=== PATIENT | male | born 1975 | race Caucasian/White ===

== ENCOUNTER 2023-05-28 15:33 | Outpatient (REF) | payer OTHER, SELFPAY ==
--- NOTE | ~2023-05-28 | XR_ITS ---
EXAMINATION: XR KNEE, LEFT CLINICAL INFORMATION: Left knee pain COMPARISON: None available. TECHNIQUE: Four views of the left knee. FINDINGS: No fracture, dislocation or destructive lesion or effusion. XR/XR knee LT 3V IMPRESSION: Unremarkable study.
== END 2023-05-28 15:34 | disposition home or self-care (01) ==
LOC: HO.XRAY 15:33
PROVIDERS: Visit Provider Student in an Organized Health Care Education/Training Program
DX: S83.412A Sprain of medial collateral ligament of left knee, initial encounter (principal)
CPT/HCPCS: 73562

== ENCOUNTER 2025-06-23 15:12 | Outpatient (AMB) | payer OTHER, SELFPAY ==
--- NOTE | 2025-06-23 15:21 | MHC.PC.OV ---
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 Support Service Tech Required: No Accompanied by: Self / Same As Patient Allergies No Known Allergies Allergy (Verified 06/23/25 15:21) Medication List - Last Reconciled 06/23/25 by Porter Triana MD No Known Home Meds Tobacco use date assessed: 06/23/25 Dental Screening Dental Screen Date: 06/23/25 Did you have a dental visit in the last 12 months?: Yes Did you have a dental problem in the last 6 months where you did not have access to dental care?: No Was dental information given to patient?: Patient has dentist HPI HPI Comments History of Present Illness Details History of Present Illness The patient is a 49 year old male presenting with an annual physical examination and health screening, his first in six years. 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 The patient has a history of hypertension, which has resolved after losing 50 pounds. His blood pressure today was 120/76 mmHg. He has a family history of diabetes, with men in his family typically developing it around his current age of 49. He also has a family history of cancer, including uterine cancer in his mother and pituitary gland cancer in his grandfather. His mother had positive genetic testing for a predisposition to cancer, which may include pancreatic cancer. He developed body aches and chills last night and also reports some nausea associated with coughing. He has been taking NyQuil and has Mucinex at home for? symptoms. The patient has an abscess on his left buttock, for which he was previously seen at an urgent care and treated with an antibiotic and topical ointment. The abscess resolved but then recurred. Past surgical history includes removal of lipomas from his shoulder and scalp. He has a history of smoking for 8 years while in the service, but he quit in 2004. He drinks alcohol occasionally and denies any use of marijuana, heroin, or cocaine. Medical History: - Hypertension, resolved with weight loss - Lipomas - Buttock abscess, recurrent - No history of depression or anxiety based on screening Surgical History: - Excision of lipoma from shoulder area - Excision of lipomas from scalp Medications: - NyQuil, as needed for cold symptoms - Mucinex, as needed for cold symptoms Family History: - Diabetes mellitus: Men in the family - Uterine cancer: Mother - Pituitary gland cancer: Grandfather - Genetic predisposition to cancer (possibly pancreatic): Mother Diagnostic Results: - Vitals: Blood pressure 120/76 mmHg. - Screening: Negative for depression and anxiety based on administered questionnaire. 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 - Tobacco Use: History of smoking for 8 years, quit in 2004. - Alcohol Use: Reports occasional alcohol use. - Substance Use: Denies use of marijuana, heroin, or cocaine. - Exercise: Reports working out at the gym 4-5 days a week. - Weight Management: Reports having lost 50 pounds. - Health Insurance: Patient had a period of 6 years without health insurance but is now insured. [facility] Medical History (Updated 06/23/25 @ 15:47 by Porter Triana MD) Upper respiratory infection, acute Annual physical exam Social History Housing: [facility] Patient Tobacco Use Status: Former Tobacco user Years Smoked: 8 years service: Yes ([employer]) Current occupational status: employed Current occupation: [employer] Questionnaire PHQ-9 Over the last 2 weeks, how often have you been bothered by any of the following problems? 1. Little interest or pleasure in doing things: not at all 2. Feeling down, depressed, or hopeless: not at all 3. Trouble falling or staying asleep, or sleeping too much: not at all 4. Feeling tired or having little energy: not at all 5. Poor appetite or overeating: not at all 6. Feeling bad about yourself - or that you are a failure or have let yourself or your family down: nearly every day 7. Trouble concentrating on things, such as reading the newspaper or watching television: not at all 8. Moving or speaking so slowly that other people could have noticed. Or the opposite - being so fidgety or restless that you have been moving around a lot more than usual: not at all 9. Thoughts that you would be better off or of hurting yourself in some way: not at all Total score: 3 Depression Screening Interpretation: Negative Depression Screening Done: Yes 09619 - PHQ-9 Billing: Yes Source: Developed by Drs. Jason Levine, Mai Mccord, Anshul Apodaca and colleagues, with an educational jessie from [employer]. Thrive Questionnaire Date Thrive assessed: 06/23/25 I am a: Patient What is your living situation today?: I have a steady place to live Within the past 12 months, did the food you bought not last and you didn't have the money to get more?: Never true Within the past 12 months, did you worry whether your food would run out before you got money to buy more?: Never true Do you have trouble paying for medicines?: No Do you have trouble getting transportation to medical appointments?: No Do you have trouble paying your heating and electricity bill?: No Do you have trouble taking care of your child, family member or friend?: No Do you have trouble with day-to-day activities such as bathing, preparing meals, shopping, managing finances, etc.?: No Are you currently unemployed and looking for a job?: No Are you interested in more education?: No THRIVE Score: 0 AUDIT C Alcohol Use Questionnaire (AUDIT-C) 1. How often do you have a drink containing alcohol?: Monthly or less 2. How many drinks containing alcohol do you have on a typical day when you are drinking?: 1 or 2 3. How often do you have six or more drinks on one occasion?: Never Total Score: 1 Score Reviewed/Action Taken: Yes ASHLEY-7 AMB Questionnaire ASHLEY-7 Feeling nervous, anxious, or on edge: 0 = Not at all Not being able to stop or control worryin = Not at all Worrying too much about different things: 0 = Not at all Trouble relaxin = Not at all Being so restless that it is hard to sit still: 0 = Not at all Becoming easily annoyed or irritable: 0 = Not at all Feeling afraid as if something awful might happen: 0 = Not at all Total ASHLEY-7 score (0-4 normal; 5-9 mild; 10-14 moderate; 15-21 severe): 0 Source: Developed by Mai Garza Kurt Kroenke and colleagues, with an educational jessie from [employer]. ASHLEY-7 Assessment Billing ASHLEY-7 Assessment Tool: ASHLEY-7 Assessment 06838 Review of Systems Narrative Review of Systems - Constitutional: Reports body aches and chills starting last night. - Gastrointestinal: Reports some nausea with coughing. - Genitourinary: Reports normal urination. - Integumentary: Reports an abscess on his left buttock. - Psychiatric: Reports his mood is great. - Cardiovascular: Denies chest pain. - All other systems reviewed and are negative. All systems reviewed & are unremarkable except as reviewed in HPI and above Physical exam (Primary Care) Vital Signs: Last Vital Signs Temp 97.7 F 06/23/25 15:24 Pulse 76 06/23/25 15:24 Resp 16 06/23/25 15:24 BP 120/76 06/23/25 15:24 Pulse Ox 97 06/23/25 15:24 Oxygen Delivery Method Room Air 06/23/25 15:24 BMI result Body Mass Index 27.2 Tobacco/Smoking Status: Tobacco use Status Tobacco use date assessed 06/23/25 06/23/25 15:27 Patient Tobacco Use Status Former Tobacco user 06/23/25 15:27 PHQ-9: PHQ-9 Score PHQ-9: Total score 3 06/23/25 15:43 Depression Screening Interpretation: Negative Narrative Physical Exam General: +Alert and oriented, Well nourished, No acute distress. Eye: Pupils are equal, round and reactive to light, Intact accommodation, Extraocular movements are intact, Normal conjunctiva, Vision unchanged. HENT: Normocephalic, Atraumatic, Tympanic membranes are clear, Normal hearing, Oral mucosa is moist, No pharyngeal erythema, Ear canals patent. Respiratory: Lungs CTA bilaterally, No wheeze, Respirations are non-labored. Cardiovascular: Regular rate, Regular rhythm, S1 auscultated, S2 auscultated, No murmur, Good pulses equal in all extremities, Normal peripheral perfusion, No edema. Gastrointestinal: Soft, Non-tender, Non-distended, Normal bowel sounds, No organomegaly. Musculoskeletal: Normal range of motion, Normal strength, No tenderness, No swelling, No deformity, Normal gait. Integumentary: Warm, Dry, [place], Intact. Abscess noted on the left cheek, healing, no antibiotics needed, advised to keep it dry. Neurologic: Alert, Oriented, Normal sensory, Normal motor function, No focal defects, Cranial Nerves II-XII are grossly intact, Normal deep tendon reflexes. Psychiatric: Cooperative, Appropriate mood & affect, Normal judgment. Mood is great, enjoys work as a social work specialist. Coding Level of Care Code New Pt Prev Care 40-64y(96921) Diagnoses Upper respiratory infection, acute J06.9 Annual physical exam Z00.00 Additional Codes ASHLEY-7 Assessment Billing - ASHLEY-7 Assessment Tool: ASHLEY-7 Assessment 94745 ([id number]) PHQ-9 - 08625 - PHQ-9 Billing: Yes ([id number]) Assessment & Plan Assessment & Plan (1) Upper respiratory infection, acute: Comment: - The patient presents with body aches and chills. - Given his work in a hospital and the high prevalence of influenza, a viral etiology is most likely. - A prescription for azithromycin (Z-Joshua) has been sent to the pharmacy, but he has been instructed not to fill it unless symptoms persist for more than five days or worsen, as antibiotics are not indicated for a likely viral illness. - He can continue symptomatic care with [id number] medications. Code(s): J06.9 - Acute upper respiratory infection, unspecified Category: Medical (2) Annual physical exam: Comment: - The patient is establishing care after a six-year lapse. - He is a fit individual who has lost 50 pounds. - We will obtain comprehensive baseline labs including a complete blood count, electrolytes, A1c, hepatitis screen, HIV screen, cholesterol panel, urine microalbumin, syphilis screen, thyroid function tests, vitamin D level, and a testosterone level as requested. - He has been counseled on the need for follow-up in one year, or sooner if labs are abnormal. - The patient is 49 and is three years overdue for a screening colonoscopy. (- A referral will be placed, and the hospital will contact him to schedule the procedure.) - This is particularly important given his family history of cancer. - His flu and COVID-19 vaccinations are up to date. Code(s): Z00.00 - Encounter for general adult medical examination without abnormal findings Category: Medical Plan: Health Maintenance: - Comprehensive lab screening ordered: CBC, electrolytes, A1c, hepatitis screen, HIV, cholesterol, urine microalbumin, syphilis screen, thyroid panel, vitamin D, and testosterone. - Colonoscopy: Patient is due for screening and a referral will be placed. - Immunizations: Patient reports he has received his flu and COVID-19 shots. - Mental Health Screening: Screened for depression and anxiety, results were negative. - Weight Management: Patient has successfully lost 50 pounds. - Exercise: Patient exercises 4-5 days per week. Patient was informed and verbally consented to the use of an ambient scribe for clinic note documentation during this visit. Vital signs reviewed. Comprehensive history, review of systems, and physical exam completed. Medications, allergies, and problem list reviewed and updated. Counseling provided on nutrition, regular exercise, sleep hygiene, and moderation of alcohol use. Discussed age-appropriate screenings (mammogram, colonoscopy, Pap, bone density) and immunizations (flu, COVID, shingles, Tdap). Screened for depression, fall risk, and home safety; no current concerns. Discussed stress management, dental and vision care, and importance of ongoing preventive follow-up. Routine labs ordered for metabolic and lipid screening. Patient educated on healthy lifestyle and agrees with the plan. Plan I informed the patient that today's visit serves as an annual physical to establish a new baseline for his health, as he has not seen a doctor in six years. We discussed the importance of comprehensive lab work, which has been ordered. I explained that due to his age, he is due for a colonoscopy for colorectal cancer screening, and a referral will be placed. Regarding his acute symptoms of body aches and chills, I explained that a viral infection like influenza is the most likely cause, and an antibiotic would not be helpful. However, I have sent a prescription for an antibiotic to his pharmacy as a precaution, with clear instructions to only fill it if his symptoms do not improve over the next few days. I examined the abscess on his buttock and informed him that it is healing well and does not require antibiotics, advising him only to keep it dry. We will follow up on lab results, and if everything is normal, I will see him back in one year. Orders: Orders Comprehensive Met. Panel Today Z00.00 - Encounter for general adult medical examination without abnormal findings Hemoglobin A1c Today Z00.00 - Encounter for general adult medical examination without abnormal findings Syphilis Screen Today Z00.00 - Encounter for general adult medical examination without abnormal findings Testosterone, Free/Total Today Z00.00 - Encounter for general adult medical examination without abnormal findings Complete Blood Count Auto Diff Today Z00.00 - Encounter for general adult medical examination without abnormal findings Hepatitis A,B,C Profile Today Z00.00 - Encounter for general adult medical examination without abnormal findings HIV Ab/Ag Today Z00.00 - Encounter for general adult medical examination without abnormal findings Lipid Panel Today Z00.00 - Encounter for general adult medical examination without abnormal findings Microalbumin, Random (w Creat) Today Z00.00 - Encounter for general adult medical examination without abnormal findings TSH reflex Free T4 Today Z00.00 - Encounter for general adult medical examination without abnormal findings Vitamin D 25-OH Total Today Z00.00 - Encounter for general adult medical examination without abnormal findings Referrals Open Access Screening Colonoscopy Referral Z12.11 - Encounter for screening for malignant neoplasm of colon Medications: New azithromycin For 250 mg dose pack: take 500 mg today (day 1), then 250 mg for 4 days (days 2-5) PO 6 tabs 0RF Patient Instructions: - Please go to the lab to have your blood drawn for the tests we discussed. - A prescription for an antibiotic (Z-Joshua) has been sent to the [facility] pharmacy on [address]. - DO NOT take the antibiotic unless your symptoms of body aches and chills do not get better by Friday or Friday, or if they last for more than 5 days. - The hospital will contact you to schedule your colonoscopy. - Keep the healing abscess on your buttock clean and dry. - Set up your patient portal account to see your lab results. - Schedule a follow-up appointment in one year. We will contact you to come in sooner if any of your lab results are abnormal.
[2025-06-23 15:24] VITALS: BP 120/76; PULSE 76; RESP 16; TEMP 36.5; O2SAT 97; BMI 27.2
== END 2025-06-23 15:43 | disposition home or self-care (01) ==
LOC: HO.HMCHD 15:13
PROVIDERS: PCP Family Medicine; Visit Provider Student in an Organized Health Care Education/Training Program
DX: Z00.00 Encounter for general adult medical examination without abnormal findings (principal); J06.9 Acute upper respiratory infection, unspecified

== ENCOUNTER → 2025-06-23 15:12 | Outpatient (BNVA) | payer OTHER, SELFPAY | PROVIDERS: PCP Family Medicine; Visit Provider Student in an Organized Health Care Education/Training Program | DX: Z00.01 Encounter for general adult medical examination with abnormal findings (principal); J06.9 Acute upper respiratory infection, unspecified; L02.31 Cutaneous abscess of buttock; Z83.3 Family history of diabetes mellitus; Z80.49 Family history of malignant neoplasm of other genital organs; Z13.31 Encounter for screening for depression | CPT/HCPCS: 96127 ==

== ENCOUNTER 2025-07-06 08:12 | Outpatient (REF) | payer OTHER, SELFPAY ==
[2025-07-06 08:28] LABS: MANUAL DIFF FLAG NO
[2025-07-06 08:52] LABS: Hematocrit 47.0 % (42.0-52.0); Hemoglobin 15.5 g/dl (14.0-18.0); Imm Gran Abs Auto 0.03 X10*3/uL (0.00-0.03); Imm Gran Pct Auto 0.4 % (0.0-0.4); Lymphocytes Absolute Auto 1.5 X10*3/uL (1.2-4.9); Mean Corpuscular HGB Conc 33.0 g/dl (31.0-36.0); Mean Corpuscular Hemoglobin 29.5 pg (27.0-33.0); Mean Corpuscular Volume 89.5 fL (80.0-98.0); NRBC Abs Auto 0.000 X10*3/uL (0.0-0.012); NRBC Pct Auto 0.0 /100WBC (0.0-0.2); Platelet Count 167 X10*3/uL (160-400); Red Blood Count 5.25 X10*6/uL (4.60-5.80); White Blood Count 6.7 X10*3/uL (4.8-10.8)
[2025-07-06 09:22] LABS: Alanine Aminotransferase 37 U/L (0-40); Albumin Level 4.3 g/dL (3.5-5.0); Alkaline Phosphatase 73 U/L (39-117); Anion Gap 11 (12-20); Aspartate Amino Transferase 37 U/L (5-37); Blood Urea Nitrogen 30 mg/dL (9-16); Calcium 9.6 mg/dL (8.4-10.2); Carbon Dioxide 27 mmol/L (22-29); Chloride 108 mmol/L (96-108); Cholesterol 252 mg/dL (<200); Estimated Glomerular Filt Rate > 60; HDL Cholesterol 40 mg/dL (>40); Potassium 3.9 mmol/L (3.3-5.1); Sodium 142 mmol/L (135-145); Total Protein 7.1 g/dL (6.5-8.0); Triglycerides 122 mg/dL (<150)
[2025-07-06 09:44] LABS: Syphilis Screen Nonreactive (Nonreactive)
[2025-07-06 09:46] LABS: HBS Num1 30.63 mIU/mL (0-7.99); HBc Num1 0.07 S/CO (0.00-0.79); HBsAGNum1 0.42 S/CO (0.00-0.99); HIV Num 1 0.10 S/CO (0.00-0.99); Hepatitis A Antibody IgM 0.24 Index (0-0.79); Hepatitis B Surface Antigen Negative (Negative); ~HepC Num1 0.39 S/CO (0.00-0.79); ~Hepatitis A Antibody IgM Nonreactive (Nonreactive); ~Hepatitis B Surface Antibody REACTIVE (Nonreactive); ~Hepatitis C Antibody Nonreactive (Nonreactive)
[2025-07-10 15:33] LABS: Testosterone, Free 138.3 pg/mL (35.0-155.0)
== END 2025-07-06 08:13 | disposition home or self-care (01) ==
LOC: HO.LAB 08:12
PROVIDERS: PCP Student in an Organized Health Care Education/Training Program; Visit Provider Student in an Organized Health Care Education/Training Program
DX: Z00.00 Encounter for general adult medical examination without abnormal findings (principal); Z13.1 Encounter for screening for diabetes mellitus; Z11.4 Encounter for screening for human immunodeficiency virus [HIV]; Z13.6 Encounter for screening for cardiovascular disorders; Z13.0 Encounter for screening for diseases of the blood and blood-forming organs and certain disorders involving the immune mechanism; Z13.21 Encounter for screening for nutritional disorder
CPT/HCPCS: 36415; 80053; 80061; 82043; 82306; 82570; 83036; 84402; 84403; 84443; 85025; 86704; 86706; 86709; 86780; 86803; 87340; 87389